=== PATIENT | female | born 1945 | race Caucasian/White ===

== ENCOUNTER → 2017-02-26 | Outpatient (CLI) | payer MEDICARE | END | disposition home or self-care (01) | LOC: CFH 10:54 | PROVIDERS: ATTEND Nurse Practitioner | DX: J32.0 Chronic maxillary sinusitis (principal); J32.1 Chronic frontal sinusitis; J32.2 Chronic ethmoidal sinusitis; J34.2 Deviated nasal septum | CPT/HCPCS: 70486 ==

== ENCOUNTER → 2018-11-08 | Outpatient (CLI) | payer MEDICARE | END | disposition home or self-care (01) | LOC: CFH 10:55 | PROVIDERS: ATTEND Nurse Practitioner Family | DX: Z12.31 Encounter for screening mammogram for malignant neoplasm of breast (principal); M85.89 Other specified disorders of bone density and structure, multiple sites; N95.9 Unspecified menopausal and perimenopausal disorder | CPT/HCPCS: 77063; 77067; 77080 ==

== ENCOUNTER → 2019-06-28 | Outpatient (CLI) | payer MEDICARE ==
[~2019-06-28] VITALS: Ht 160 cm; Wt 94.4 kg
[~2019-06-28] MED LIST: B12/1TAB PO; FENO50CA4 PO; GABA300C10 PO; GINK120T3 PO; INFLIXIMAB DYYB IV ONE; LISI1TAB20 PO; MULT-758 PO; NIAC250T7 PO; OMEG-72 PO; SODIUM CHLORIDE 0.9% IV ONE
[2019-06-28 10:40] VITALS: BP 135/82
== END | disposition home or self-care (01) ==
LOC: INFUSION 10:25
PROVIDERS: ATTEND Internal Medicine
DX: K51.00 Ulcerative (chronic) pancolitis without complications (principal)
CPT/HCPCS: 96365; 96366; J7050; Q5103

== ENCOUNTER 2019-11-08 11:58 | Inpatient (IN) | payer MEDICARE ==
[~2019-11-08] VITALS: Ht 160 cm; Wt 90.3 kg
[~2019-11-08 11:58] MED LIST changes: -INFLIXIMAB DYYB IV ONE; -SODIUM CHLORIDE 0.9% IV ONE
--- NOTE | 2019-11-08 12:59 | NUR ---
PT WAS INCONTINENT OF STOOL IN DIAPER. HYGIENE PROVIDED, BRIEF CHANGED. PT THEN VOIDED IN BEDPAN. PT VERY WEAK, UNABLE TO SIT UP IN BED HERSELF. ER LAURI WAS IN TO SEE PT.
[2019-11-08] MEDS ORDERED: SODIUM CHLORIDE FLUSH 10ML SYR IVF ONE (13:00)
[2019-11-08] MEDS ORDERED: SODIUM CHLORIDE 0.9% 1,000ML IVBOLUS ONE (13:00)
--- NOTE | 2019-11-08 13:38 | NUR ---
2ND ATTEMPT AT BLOOD DRAW BY MANUFACTURING ASSISTANT SUCCESSFUL. ERP WAS IN TO SEE PT. REPORTED TO OBED MCGEE.
[2019-11-08 13:42] LABS: MEAN CORPUSCULAR HEMOGLOBIN 31.1 pg (27.0-34.8); MEAN CORPUSCULAR HGB CONC 33.3 g/dL (32.4-35.8); MEAN CORPUSCULAR VOLUME 93.4 fL (80-100); PLATELET COUNT 365 x10^3/uL (130-400); RED BLOOD COUNT 4.03 x10^6/uL (3.82-5.3); RED CELL DISTRIBUTION WIDTH 15.1 % (9.6-15.2)
[2019-11-08 13:52] LABS: ALANINE AMINOTRANSFERASE 72 U/L (12-78); ALBUMIN 2.6 g/dL (3.4-5.0); ANION GAP 16 mmol/L (5-15); CALCIUM 8.8 mg/dL (8.5-10.1); CHLORIDE 97 mmol/L (98-107); CREATININE 1.63 mg/dL (0.55-1.02)
[2019-11-08 13:55] LABS: ALKALINE PHOSPHATASE 56 U/L (45-117); BILIRUBIN,TOTAL 0.6 mg/dL (0.2-1.0); TOTAL PROTEIN 7.6 g/dL (6.4-8.2)
[2019-11-08 14:03] LABS: MD YES
[2019-11-08 14:06] LABS: <PLATELET ESTIMATE> ADEQUATE; <RBC MORPHOLOGY> NORMAL; BANDS%(MANUAL) 8 % (0-7); LYMPH#(MANUAL) 0.25 x10^3/uL (1-3.4); LYMPHS% (MANUAL) 1 % (22-44); MONOS#(MANUAL) 1.75 x10^3/uL (0.3-2.7); MONOS% (MANUAL) 7 % (2-9); SEGS% (MANUAL) 84 % (42-75)
[2019-11-08 14:07] LABS: <PLT MORPHOLOGY> NORMAL PLT MORPH
--- NOTE | 2019-11-08 14:11 | NUR ---
STRAIGHT CATH DONE TO OBTAIN URINE SAMPLE. URINE [place] TO LAB.
[2019-11-08] MEDS ORDERED: METRONIDAZOLE PMX 500MG/100ML 100 ML IV ONE (14:30)
[2019-11-08] MEDS ORDERED: CEFTRIAXONE PMX 1GM/50ML 50 ML IV ONE (14:30)
[2019-11-08 14:53] LABS: MICROSCOPIC INDICATED
--- NOTE | 2019-11-08 15:10 | NUR ---
REPORT GIVEN TO ALY MCGEE
[2019-11-08] MEDS ORDERED: METRONIDAZOLE PMX 500MG/100ML 100 ML ONE (15:11)
[2019-11-08] MEDS ORDERED: CEFTRIAXONE PMX 1GM/50ML 50 ML ONE (15:11)
--- NOTE | 2019-11-08 15:17 | NUR ---
PT GOING GOT CT AT THIS TIME. BLOOD CULTURES HAVE BEEN DRAWN. ORDERED ABX STARTED.
[2019-11-08 15:52] VITALS: BP 157/79
[2019-11-08 15:54] LABS: ACETONE, SERUM Large (80mg/dL) (Negative)
[2019-11-08] MEDS ORDERED: ONDANSETRON 2MG/ML, 2ML IVPush PRN (16:30)
[2019-11-08] MEDS ORDERED: hydrALAzine 20 MG/ML, 1ML IVPush PRN (16:30)
[2019-11-08] MEDS ORDERED: ONDANSETRON ODT 4 MG PO PRN (16:30)
[2019-11-08] MEDS ORDERED: LABETALOL 5MG/ML, 20ML IVPush PRN (16:30)
[2019-11-08] MEDS ORDERED: MESA0.372 PO (16:34)
[2019-11-08] MEDS ORDERED: FENO54TA17 PO (16:34)
[2019-11-08] MEDS ORDERED: MERC50TA17 PO (16:34)
[2019-11-08] MEDS ORDERED: GABA600T7 PO (16:34)
[2019-11-08] MEDS: HEPARIN 5,000 UNITS/ML, 1ML SQ SCH (18:28)
[2019-11-08] MEDS: NS + 20MEQ KCL 1,000 ML IV SCH (18:28)
[2019-11-08 21:54] VITALS: BP 114/66
[2019-11-09] MEDS: NS + 20MEQ KCL 1,000 ML IV SCH (02:59)
[2019-11-09] MEDS: ACETAMINOPHEN 325 MG TABLET PO PRN ×3 (03:00→17:04)
[2019-11-09] MEDS: HEPARIN 5,000 UNITS/ML, 1ML SQ SCH ×3 (03:00→18:12)
[2019-11-09] MEDS: CEFEPIME 2 GM in DEXTROSE 5% 100 ML IV SCH ×2 (03:50→16:48)
[2019-11-09 03:52] VITALS: BP 119/66
[2019-11-09 06:52] LABS: CHLORIDE 104 mmol/L (98-107)
[2019-11-09 06:58] LABS: ALANINE AMINOTRANSFERASE 57 U/L (12-78); ALBUMIN 1.9 g/dL (3.4-5.0); ALKALINE PHOSPHATASE 50 U/L (45-117); BILIRUBIN,TOTAL 0.4 mg/dL (0.2-1.0); CALCIUM 7.5 mg/dL (8.5-10.1); CREATININE 1.16 mg/dL (0.55-1.02); TOTAL PROTEIN 6.1 g/dL (6.4-8.2)
[2019-11-09 07:14] LABS: ANION GAP 4 mmol/L (5-15)
[2019-11-09 08:37] VITALS: BP 127/78
[2019-11-09 08:44] LABS: MEAN CORPUSCULAR HEMOGLOBIN 30.9 pg (27.0-34.8); MEAN CORPUSCULAR VOLUME 93.5 fL (80-100); MEAN PLATELET VOLUME 7.6 fL (7.4-10.4); PLATELET COUNT 360 x10^3/uL (130-400); RED BLOOD COUNT 3.63 x10^6/uL (3.82-5.3)
[2019-11-09 09:07] LABS: MD YES
[2019-11-09 09:08] LABS: BAND#(MANUAL) 1.22 x10^3/uL; BANDS%(MANUAL) 6 % (0-7); LYMPH#(MANUAL) 0.82 x10^3/uL (1-3.4); LYMPHS% (MANUAL) 4 % (22-44); METAMYELOCYTES% (MANUAL) 1 % (0-1); MONOS#(MANUAL) 1.43 x10^3/uL (0.3-2.7); MONOS% (MANUAL) 7 % (2-9); MYELOCYTES# (MANUAL) 0.41 x10^3/uL (0-0); MYELOCYTES% (MANUAL) 2 % (0-0); SEG#(MANUAL) 16.32 x10^3/uL (1.8-6.8); SEGS% (MANUAL) 80 % (42-75)
[2019-11-09 09:09] LABS: <RBC MORPHOLOGY> NORMAL; PMNS WITH VACUOLES 1+
[2019-11-09 09:10] LABS: <PLATELET ESTIMATE> ADEQUATE; <PLT MORPHOLOGY> NORMAL PLT MORPH
[2019-11-09 09:43] LABS: CLOSTRIDIUM DIFFICILE ANTIGEN NEGATIVE; CLOSTRIDIUM DIFFICILE TOXIN NEGATIVE (Negative)
[2019-11-09] MEDS ORDERED: CALCIUM CARBONATE 500 MG TAB.CHEW PO PRN (12:00)
[2019-11-09 12:49] VITALS: BP 112/68
[2019-11-09] MEDS ORDERED: CEFTRIAXONE PMX 1GM/50ML 50 ML IV SCH (15:00)
[2019-11-09] MEDS ORDERED: NS + 20MEQ KCL 1,000 ML IV SCH (16:15)
[2019-11-09 20:14] VITALS: BP 106/64
[2019-11-10 00:16] VITALS: BP 109/65
[2019-11-10] MEDS: HEPARIN 5,000 UNITS/ML, 1ML SQ SCH ×3 (02:49→18:30)
[2019-11-10] MEDS: CEFEPIME 2 GM in DEXTROSE 5% 100 ML IV SCH ×2 (02:55→15:36)
[2019-11-10] MEDS: DIPHENHYDRAMINE 25 MG CAPSULE PO PRN ×3 (05:07→22:08)
[2019-11-10 06:21] VITALS: BP 138/77
[2019-11-10 06:34] LABS: MEAN CORPUSCULAR HEMOGLOBIN 30.8 pg (27.0-34.8); MEAN CORPUSCULAR HGB CONC 33.7 g/dL (32.4-35.8); MEAN CORPUSCULAR VOLUME 91.5 fL (80-100); MEAN PLATELET VOLUME 7.9 fL (7.4-10.4); PLATELET COUNT 380 x10^3/uL (130-400); RED BLOOD COUNT 3.29 x10^6/uL (3.82-5.3); RED CELL DISTRIBUTION WIDTH 15.1 % (9.6-15.2)
[2019-11-10 06:48] LABS: ANION GAP 7 mmol/L (5-15); CALCIUM 8.4 mg/dL (8.5-10.1); CHLORIDE 104 mmol/L (98-107)
[2019-11-10 06:51] LABS: ALANINE AMINOTRANSFERASE 53 U/L (12-78); ALKALINE PHOSPHATASE 56 U/L (45-117); BILIRUBIN,TOTAL 0.4 mg/dL (0.2-1.0); TOTAL PROTEIN 6.2 g/dL (6.4-8.2)
[2019-11-10 06:58] LABS: MD YES
[2019-11-10 07:00] LABS: <PLATELET ESTIMATE> ADEQUATE; <PLT MORPHOLOGY> NORMAL PLT MORPH; <RBC MORPHOLOGY> NORMAL; BAND#(MANUAL) 1.01 x10^3/uL; BANDS%(MANUAL) 5 % (0-7); LYMPH#(MANUAL) 2.22 x10^3/uL (1-3.4); LYMPHS% (MANUAL) 11 % (22-44); MONOS#(MANUAL) 0.61 x10^3/uL (0.3-2.7); MONOS% (MANUAL) 3 % (2-9); SEG#(MANUAL) 16.36 x10^3/uL (1.8-6.8); SEGS% (MANUAL) 81 % (42-75); TOXIC GRAN 1+
[2019-11-10 13:55] VITALS: BP 128/62
[2019-11-10] MEDS: ACETAMINOPHEN 325 MG TABLET PO PRN (18:30)
[2019-11-10 18:34] VITALS: BP 156/82
[2019-11-10] MEDS: DIPHENHYDRAMINE 12.5MG/5ML, 10ML UDC PO PRN (19:40)
[2019-11-11 01:38] VITALS: BP 140/82
[2019-11-11] MEDS: CEFEPIME 2 GM in DEXTROSE 5% 100 ML IV SCH ×2 (03:00→15:24)
[2019-11-11] MEDS: HEPARIN 5,000 UNITS/ML, 1ML SQ SCH ×3 (03:00→17:18)
[2019-11-11 07:18] VITALS: BP 144/79
[2019-11-11] MEDS: DIPHENHYDRAMINE 25 MG CAPSULE PO PRN ×2 (09:31→17:13)
[2019-11-11] MEDS: ACETAMINOPHEN 325 MG TABLET PO PRN (09:31)
[2019-11-11 13:30] VITALS: BP 142/79
[2019-11-11 18:21] LABS: MEAN CORPUSCULAR HEMOGLOBIN 30.8 pg (27.0-34.8); MEAN CORPUSCULAR HGB CONC 33.8 g/dL (32.4-35.8); MEAN CORPUSCULAR VOLUME 91.3 fL (80-100); PLATELET COUNT 474 x10^3/uL (130-400); RED BLOOD COUNT 3.61 x10^6/uL (3.82-5.3); RED CELL DISTRIBUTION WIDTH 15.7 % (9.6-15.2)
[2019-11-11 18:23] LABS: ALANINE AMINOTRANSFERASE 48 U/L (12-78); ALBUMIN 2.4 g/dL (3.4-5.0); ANION GAP 9 mmol/L (5-15); CALCIUM 9.1 mg/dL (8.5-10.1); CHLORIDE 107 mmol/L (98-107); CREATININE 0.81 mg/dL (0.55-1.02)
[2019-11-11 18:25] LABS: ALKALINE PHOSPHATASE 62 U/L (45-117); BILIRUBIN,TOTAL 0.5 mg/dL (0.2-1.0); TOTAL PROTEIN 7.2 g/dL (6.4-8.2)
[2019-11-11 18:44] LABS: MD YES
[2019-11-11 18:57] LABS: BAND#(MANUAL) 2.05 x10^3/uL; BANDS%(MANUAL) 12 % (0-7); BASOS#(MANUAL) 0.17 x10^3/uL (0-0.1); BASOS% (MANUAL) 1 % (0-1); EOS#(MANUAL) 0.17 x10^3/uL (0.0-0.4); EOS% (MANUAL) 1 % (1-7); LYMPH#(MANUAL) 3.42 x10^3/uL (1-3.4); LYMPHS% (MANUAL) 20 % (22-44); METAMYELOCYTES# (MANUAL) 0.34 x10^3/uL (0-0); METAMYELOCYTES% (MANUAL) 2 % (0-1); MONOS#(MANUAL) 0.34 x10^3/uL (0.3-2.7); MONOS% (MANUAL) 2 % (2-9); MYELOCYTES# (MANUAL) 0.17 x10^3/uL (0-0); MYELOCYTES% (MANUAL) 1 % (0-0); SEG#(MANUAL) 10.43 x10^3/uL (1.8-6.8); SEGS% (MANUAL) 61 % (42-75)
[2019-11-11 18:58] LABS: <RBC MORPHOLOGY> NORMAL; PMNS WITH VACUOLES 1+; TOXIC GRAN 1+
[2019-11-11 18:59] LABS: <PLATELET ESTIMATE> INCREASED
[2019-11-11 19:00] LABS: <PLT MORPHOLOGY> NORMAL PLT MORPH
[2019-11-11 20:33] VITALS: BP 140/83
[2019-11-11] MEDS: DIPHENHYDRAMINE 12.5MG/5ML, 10ML UDC PO PRN (21:41)
[2019-11-12] MEDS: HEPARIN 5,000 UNITS/ML, 1ML SQ SCH ×2 (01:21→09:30)
[2019-11-12 01:48] VITALS: BP 144/74
[2019-11-12] MEDS: ACETAMINOPHEN 325 MG TABLET PO PRN (03:49)
[2019-11-12] MEDS: CEFEPIME 2 GM in DEXTROSE 5% 100 ML IV SCH (03:49)
[2019-11-12 06:28] VITALS: BP 151/76
[2019-11-12] MEDS ORDERED: POTASSIUM CHLORIDE 20 MEQ TAB.ER.PRT PO ONE (09:30)
[2019-11-12] MEDS ORDERED: LEVO750T26 PO (12:09)
[2019-11-12] MEDS ORDERED: CEFEPIME 2 GM in DEXTROSE 5% 100 ML IV SCH (15:00)
== END 2019-11-12 13:25 | disposition home or self-care (01) | DRG 871 ==
LOC: ED 14:30 → 4WST 15:47 → ED 16:15 → EDIP 16:15 → 4WST 16:46 → DCLOUNGE 11-12 13:14
PROVIDERS: ADMIT Internal Medicine; ATTEND Internal Medicine
PROC: 0T9B70Z Drainage of Bladder with Drainage Device, Via Natural or Artificial Opening (ICD-10-PCS; principal; 2019-11-08)
DX: A41.51 Sepsis due to Escherichia coli [E. coli] (principal); G93.41 Metabolic encephalopathy; N17.0 Acute kidney failure with tubular necrosis; E43 Unspecified severe protein-calorie malnutrition; N12 Tubulo-interstitial nephritis, not specified as acute or chronic; E87.1 Hypo-osmolality and hyponatremia; E87.2 Acidosis; K51.90 Ulcerative colitis, unspecified, without complications; E87.6 Hypokalemia; I10 Essential (primary) hypertension; G62.9 Polyneuropathy, unspecified; E83.51 Hypocalcemia; D64.9 Anemia, unspecified; I44.7 Left bundle-branch block, unspecified; R74.0 Nonspecific elevation of levels of transaminase and lactic acid dehydrogenase [LDH]; Z88.2 Allergy status to sulfonamides; Z68.35 Body mass index [BMI] 35.0-35.9, adult
CPT/HCPCS: 36415; 74176; 80053; 81001; 82010; 82306; 83605; 83735; 84145; 84295; 85025; 87040; 87077; 87086; 87186; 87324; 89055; 93005; G0378; J0696; J1644; J3480; J7030; Q0163